=== PATIENT | male | born 1970 | race Hispanic/Latino ===

== ENCOUNTER 2020-06-14 13:22 | Outpatient (CLI) | payer OTHER ==
--- NOTE | 2020-06-14 13:45 | RAD ---
XR Knee Rt 4 View STANDARD HISTORY: Right knee pain and swelling FINDINGS: No fracture or dislocation is identified. A joint effusion is present.
== END 2020-06-14 13:23 | disposition home or self-care (01) ==
LOC: BICRAD 13:22
PROVIDERS: ATTEND Family Medicine
DX: M25.461 Effusion, right knee (principal); M25.561 Pain in right knee